=== PATIENT | male | born 1955 | race Caucasian/White ===

== ENCOUNTER 2019-05-27 06:11 | Day surgery (SDC) | payer MEDICARE, OTHER, SELFPAY | END 2019-05-27 11:00 | disposition home or self-care (01) | PROVIDERS: Visit Provider Ophthalmology ==

== ENCOUNTER 2019-10-07 07:00 | Day surgery (SDC) | payer MEDICARE, OTHER, SELFPAY ==
[2019-10-07] MEDS: PROPARACAINE 0.5% OPHTH SOL 2 DROPS EYE-OP (07:49)
[2019-10-07 07:52] VITALS: BP 154/81; PULSE 72; RESP 13; TEMP 36.4; O2SAT 98
[2019-10-07] MEDS: CATARACT EYE COMPOUND (10 DROPS/SYRINGE) 3 DROPS EYE-OP (07:53)
[2019-10-07 07:54] VITALS: BMI 31.5
[2019-10-07] MEDS: BALANCED SALT IRRIG SOLN NO.2 15 ML 5 ML IRR (08:30)
--- NOTE | 2019-10-07 08:32 | PM.PREOP ---
Pre-operative Note Interval Note History & Physical reviewed/Exam performed by Physician: Yes Changes to H&P: No
[2019-10-07] MEDS: TETRACAINE 0.5% OPHTH DROPS 4 ML 2 DROPS EYE-OP (08:42)
[2019-10-07] MEDS: CHONDROIDTIN/SOD HYALURONATE 1.05 ML SYRINGE INTRAOCULA (08:42)
[2019-10-07] MEDS: LIDOCAINE 2% INJ SDV 2 ML INJ (08:43)
[2019-10-07] MEDS: PHENYLEPHRINE/LIDOCAINE VIAL (OR) 0.2 ML EYE-OP (08:43)
[2019-10-07] MEDS: BALANCED SALT IRRIG SOLN NO.2 500 ML, EPINEPHrine 1 MG IRR (08:43)
[2019-10-07] MEDS: MOXIFLOXACIN INJ 5 MG/ML VIAL EYE-OP (08:44)
--- NOTE | 2019-10-07 09:03 | PM.OP.1 ---
Procedure & Clinicians Procedure: Cataract extraction with intraocular lens implant, right. 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 The correct patient, surgical site and lens were confirmed. 0.5 % tetracaine drops were placed in the right eye. The patient was prepped and draped in the typical sterile manner. A lid speculum was placed in the eye. 2% lidocaine was placed on the eye. A paracentesis port was created with a side-port blade. 0.1 mL of 1% preservative free lidocaine with phenylephrine was injected into the anterior chamber. Viscoelastic was injected into the anterior chamber. A 2.6mm keratome was used to create a clear corneal temporal incision. Cystotome and Utrata forceps were used to create a continuous curvilinear capsulorrhexis. Balanced salt solution was used to hydrodissect the nucleus. Phacoemulsification was used to remove the lens. The capsular bag was inflated with viscoelastic. A Garcias ZCBOO +19.5D lens was inserted into the capsule. Viscoelastic was removed and the wound hydrated. The wound was found to be leak free and the eye was assessed to be at normal physiologic pressure. 0.1mL Moxifloxacin (5mg/mL) preservative free was injected into the anterior chamber. The lid speculum was removed and the patient left the operating room in excellent condition. Complications: none Post-operative Condition: stable Disposition: same day surgery
[2019-10-07 09:10] VITALS: BP 170/90; PULSE 97; RESP 16; TEMP 36.1; O2SAT 97
== END 2019-10-07 09:20 | disposition home or self-care (01) ==
LOC: OR 07:04
PROVIDERS: Referring Provider Ophthalmology; Visit Provider Ophthalmology
PROC: (CPT 66984; principal; 2019-10-07 08:30)
DX: H25.811 Combined forms of age-related cataract, right eye (principal); H04.123 Dry eye syndrome of bilateral lacrimal glands; H11.153 Pinguecula, bilateral
CPT/HCPCS: 66984; J0171; J2250; J3010

== ENCOUNTER 2019-10-28 07:38 | Day surgery (SDC) | payer MEDICARE, OTHER, SELFPAY ==
[2019-10-28] MEDS: PROPARACAINE 0.5% OPHTH SOL 2 DROPS EYE-OP (08:18)
[2019-10-28] MEDS: CATARACT EYE COMPOUND (10 DROPS/SYRINGE) 3 DROPS EYE-OP (08:19)
[2019-10-28 08:29] VITALS: BP 117/74; PULSE 69; RESP 16; TEMP 36.1; O2SAT 97; BMI 30.4
--- NOTE | 2019-10-28 09:10 | PM.PREOP ---
Pre-operative Note Interval Note History & Physical reviewed/Exam performed by Physician: Yes Changes to H&P: No
[2019-10-28] MEDS: DEXTROSE 5%-0.45% NS 1,000 ML 100 ML IV (09:12)
[2019-10-28] MEDS: TETRACAINE 0.5% OPHTH DROPS 4 ML 2 DROPS EYE-OP (09:20)
[2019-10-28] MEDS: BALANCED SALT IRRIG SOLN NO.2 15 ML 5 ML IRR (09:38)
[2019-10-28] MEDS: MOXIFLOXACIN INJ 5 MG/ML VIAL EYE-OP (09:38)
[2019-10-28] MEDS: CHONDROIDTIN/SOD HYALURONATE 1.05 ML SYRINGE INTRAOCULA (09:38)
[2019-10-28] MEDS: LIDOCAINE 2% INJ SDV 2 ML INJ (09:38)
[2019-10-28] MEDS: PHENYLEPHRINE/LIDOCAINE VIAL (OR) 0.2 ML EYE-OP (09:39)
[2019-10-28] MEDS: BALANCED SALT IRRIG SOLN NO.2 500 ML, EPINEPHrine 1 MG IRR (09:39)
--- NOTE | 2019-10-28 09:54 | PM.OP.1 ---
Procedure & Clinicians Procedure: Cataract extraction with intraocular lens implant, left. Same procedure as scheduled: Yes Indications: Age related visually significant nuclear sclerosis, left Surgeon: Rao Redding Click Yes if Unassisted: Yes Anesthesia Type: MAC +/- Operative Notes Procedure in detail: The patient was brought to the operating suite. The correct patient, surgical site and lens were confirmed. 0.5 % tetracaine drops were placed in the left eye. The patient was prepped and draped in the typical sterile manner. A lid speculum was placed in the eye. 2% lidocaine was placed on the eye. A paracentesis port was created with a side-port blade. 0.1 mL of 1% preservative free lidocaine with phenylephrine was injected into the anterior chamber. Viscoelastic was injected into the anterior chamber. A 2.6mm keratome was used to create a clear corneal temporal incision. Cystotome and Utrata forceps were used to create a continuous curvilinear capsulorrhexis. Balanced salt solution was used to hydrodissect the nucleus. Phacoemulsification was used to remove the lens. The capsular bag was inflated with viscoelastic. A Garcias ZCBOO +20.0D lens was inserted into the capsule. Viscoelastic was removed and the wound hydrated. The wound was found to be leak free and the eye was assessed to be at normal physiologic pressure. 0.1mL Moxifloxacin (5mg/mL) preservative free was injected into the anterior chamber. The lid speculum was removed and the patient left the operating room in excellent condition. Complications: none Post-operative Condition: stable Disposition: same day surgery
[2019-10-28 10:12] VITALS: BP 155/82; PULSE 65; RESP 20; TEMP 36.4; O2SAT 97
== END 2019-10-28 10:14 | disposition home or self-care (01) ==
LOC: OR 07:40
PROVIDERS: Referring Provider Ophthalmology; Visit Provider Ophthalmology
PROC: (CPT 66984; principal; 2019-10-28 09:00)
DX: H25.12 Age-related nuclear cataract, left eye (principal)
CPT/HCPCS: 66984; J0171; J2250; J3010